=== PATIENT | male | born 1960 | race Hispanic/Latino ===

== ENCOUNTER → 2017-05-29 | Day surgery (SDC) | payer BC ==
[2017-05-26 12:05] LABS: ANION GAP 12.4 mmol/L (8-16); BLOOD UREA NITROGEN 17 mg/dL (7-26); BUN/CREATININE RATIO 23 (6-25); CALCIUM 9.4 mg/dL (8.4-10.2); CARBON DIOXIDE 28 mmol/L (22-29); CHLORIDE 107 mmol/L (98-107); CREATININE, SERUM 0.75 mg/dL (0.72-1.25); EST GLOMERULAR FILTRATION RATE > 60 ML/MIN (60-); GLUCOSE 174 mg/dL (74-118); POTASSIUM 4.4 mmol/L (3.5-5.1); SODIUM 143 mmol/L (136-145)
[~2017-05-29] MED LIST: ACETAMINOPHEN 1000 MG/100 ML IV ONE; ATORVASTATIN CA10 MG PO; BACITRACIN 50,000 UNIT VIAL ONE; BUPIVACAINE HCL 0.5% INJ 30 ML VIAL INJ ONE; CEFAZOLIN SOD 1 GM VIAL ONE; DEXAMETHASONE SOD PHOS INJ 4 MG/ML VIAL ONE; EPHEDRINE SULFATE INJ 50 MG/10 ML SYR ONE; FENTANYL CITRATE/PF 100MCG/2 ML INJ ONE; KETOROLAC TROMETHAMINE 30 MG/ML VIAL ONE; LIDOCAINE HCL 2% LOCAL INJ 5 ML SDV VIAL INJ ONE; METFORMIN HCL500 M2 PO; MIDAZOLAM HCL 2 MG/2 ML VIAL ONE; MUPIROCIN 2% OINT 22 GM TUBE ONE; ONDANSETRON HCL INJ 2 MG/ML VIAL ONE; PROPOFOL IV EMULSION 10 MG/ML 20 ML VIAL ONE; SEVOFLURANE INHAL SOLN 250 ML PEN BTL ONE
--- NOTE | 2017-05-30 08:57 | Operative Report ---
DATE OF PROCEDURE: May 29, 2017 PREOPERATIVE DIAGNOSIS: Left ulnar nerve compression neuropathy, elbow. POSTOPERATIVE DIAGNOSIS: Left ulnar nerve compression neuropathy, elbow. PROCEDURE: Left ulnar nerve decompression and transposition. ANESTHESIA: General. HISTORY: The patient is a 57-year-old right hand dominant male who has significant intrinsic atrophy of the left hand and upper extremity. Patient has a nerve conduction study test showing significant severe compression neuropathy of the elbow and compression neuropathy of the ulnar nerve around the elbow. The risks, benefits and alternatives were discussed with the patient. He is prepared to undergo the procedures outlined. DETAILS OF PROCEDURE: Patient was marked preoperatively in the holding area. He was brought to the operating theater. After the induction of adequate general anesthesia, he was prepped and draped in a supine position. A time out was performed. An incision was marked out from the medial epicondyle extending approximately 4-5 cm proximally over the intermuscular septum, and then distally over the flexor pronator muscle mass for 4-5 cm distally. The left upper extremity was exsanguinated and a tourniquet inflated to a pressure of 250 mmHg. The incision was made through the skin and subcutaneous tissues. Venous tributaries were controlled with the bipolar cautery. The incision was deepened through the subcutaneous tissue directly down to the medial epicondyle. The soft tissues were elevated off the flexor pronator muscle mass from the epicondyle and distally for adequate visualization. Proximal to the medial epicondyle, the intermuscular septum was identified at its attachment. Posteriorly, the ulnar nerve was identified. Soft tissues were then elevated off of the fascial plane and the ulnar nerve as identified. The fascia overlying the ulnar nerve was then incised, and then keeping the ulnar nerve in view, the fascia is released all the way through the cubital tunnel taking care to protect and preserve the ulnar nerve within the cubital tunnel. There was a dense amount of fibrous and scarring of the region of the cubital tunnel and the area of compression was identified. Once the cubital tunnel was released distally, the flexor pronator muscle mass was divided with its overlying fascia in the direction of the ulnar nerve and muscle fibers. At this point, the ulnar nerve was completely decompressed. The intermuscular septum is excised from its attachment to the medial epicondyle and for a distance of several centimeters proximally so that there was no site of new compression when the ulnar nerve was transposed. At this point, using a hemostat the tissue behind the ulnar nerve was dissected free, and 0.25-inch [place] drain was then placed around the ulnar nerve for traction. The ulnar nerve was gently lifted out of its bed dissecting the attachments allowing the nerve to be elevated out of the cubital tunnel. The dissection continues distally until the 1st and 2nd muscular branches of the ulnar nerve entered the flexor pronator muscle mass were identified. At this point, a section of the flexor pronator muscle mass over where the new site of the nerve will be is marked out. Then it was excised using the electrocautery. At this point, the ulnar nerve was elevated out of its bed transposed anteriorly and subcutaneously, and then checked for freedom of movement while the elbow was placed through a range of motion. There was no acuity to the course of the nerve and there is no undue sites of compression. At this point, the wound was irrigated with bacteriostatic saline. The subcutaneous tissues are attached to the medial epicondyle using 3-0 Vicryl in an interrupted figure-of-8 fashion to create a sling and prevent the ulnar nerve from subluxing back into the cubital tunnel. Once again, the path of the nerve as verified. The elbow was placed through a range of motion. There was good gliding of the nerve and no kinking for sites of new compression. The wound was then closed utilizing 3-0 Vicryl in an interrupted buried fashion followed by 5-0 nylon interrupted horizontal mattress fashion. A Marcaine field block was performed at the operative site. The tourniquet was deflated. All the fingers pinked up nicely. A sterile bulking conforming bandage was applied. Patient tolerated the procedure well, and was brought to the recovery room in satisfactory condition, and discharged with a postoperative instruction sheet, as well as a followup appointment. Job#: [id number] RISA
== END | disposition home or self-care (01) ==
LOC: OR 05:48
PROVIDERS: ATTEND Plastic Surgery
DX: G56.22 Lesion of ulnar nerve, left upper limb (principal); E11.9 Type 2 diabetes mellitus without complications; Z01.812 Encounter for preprocedural laboratory examination
CPT/HCPCS: 36415 ×2; 64718; 80048; 82948; J0690; J1100; J1885; J2001; J2250; J2405

== ENCOUNTER → 2017-06-19 | Day surgery (SDC) | payer BC ==
[~2017-06-19] MED LIST changes: -ACETAMINOPHEN 1000 MG/100 ML IV ONE; +ASPIRIN325 MG PO; -BACITRACIN 50,000 UNIT VIAL ONE; -EPHEDRINE SULFATE INJ 50 MG/10 ML SYR ONE; -KETOROLAC TROMETHAMINE 30 MG/ML VIAL ONE
--- NOTE | 2017-06-19 13:59 | Operative Report ---
PREOPERATIVE DIAGNOSIS: Right cubital tunnel syndrome. POSTOPERATIVE DIAGNOSIS: Right cubital tunnel syndrome. PROCEDURE 1. Right ulnar nerve transposition. 2. Flexor pronator muscle flap. ANESTHESIA: General. HISTORY: The patient is a 57-year-old male with EMG-proven cubital tunnel syndrome. Risks, benefits, and alternatives of treatment were discussed with the patient, and he is prepared to undergo the procedures outlined. PROCEDURE: The patient was brought to the operating theater and after the induction of adequate general inhalation anesthesia was prepped and draped in a supine position. A time out was performed by the entire operating room team. An incision was marked out from the medial epicondyle extending both proximally and distally for approximately 4-5 cm in each limb. The right upper extremity was exsanguinated and the tourniquet was inflated to a pressure of 250 mmHg. The incision was made through the skin and subcutaneous tissues, and all venous tributaries were controlled using the electrocautery. The incision was deepened through the subcutaneous tissue, and all the sensory medial antebrachial cutaneous branches that were identified were protected and preserved throughout the dissection. At this point, the dissection was continued directly onto the medial epicondyle. The skin and subcutaneous tissues were then elevated off the medial epicondyle and the flexor pronator muscle mass. Proximal to the medial epicondyle the intramuscular septum was identified and the ulnar nerve was identified just posterior to the intramuscular septum. The overlying tissue over the ulnar nerve was gently incised, taking care to protect and preserve the ulnar nerve. With the ulnar nerve in site, the overlying tissue was incised from proximal to distal through the cubital tunnel releasing the compressing structures of the ulnar nerve. At the distal aspect of the cubital tunnel, the flexor pronator muscle mass was divided and the dissection of the ulnar nerve continued until the 1st and 2nd muscular branches were identified. At this point, the medial epicondyle was marked out and an incision approximately 1.5 cm from the epicondyle was made through the fascial and muscular tissues using the electrocautery. Hemostasis was made absolute using the electrocautery. The entire flexor pronator muscle mass was elevated out of its bed in order to allow transposition of the nerve. The nerve was then gently elevated out of the cubital tunnel using a Angélica drain for traction. The posterior attachments were released and the nerve was then transposed anteriorly. The transposition was noted to provide adequate relief of tension from the compressing structures on the nerve. The medial intramuscular septum was excised from the medial epicondyle and for a distance of several centimeters proximally in order to prevent compression. With the nerve transposed submuscularly, the elbow was placed through a range of motion and there was noted to be good gliding of the nerve and no kinking or acuity throughout its course. At this point, the flexor pronator muscle mass was repaired to the cuff of tissue on the medial epicondyle using 2-0 Vicryl in an interrupted horizontal mattress fashion. The elbow was placed through a range of motion again and the nerve was visualized and there was noted to be no compression. The wound was then copiously irrigated with bacteriostatic saline and closed in layers. A 4-0 Vicryl was used in an interrupted buried fashion to approximate the deep dermis and 5-0 nylon was used in an interrupted horizontal mattress fashion. A Marcaine field block was performed at the operative site. The tourniquet was deflated. All the fingers pinked up nicely and a sterile bulky conforming bandage was applied from the axilla to the hand. A fiberglass splint was fashioned to maintain the elbow at approximately 90 degrees of flexion and this was held in place with a loosely wrapped Nick wrap. The estimated blood loss of the procedure was negligible. The patient tolerated the procedure well and was brought to the recovery room in satisfactory condition and discharged with a postoperative instruction sheet as well as a followup appointment. Job#: [id number] BLAZE
== END | disposition home or self-care (01) ==
LOC: OR 07:11
PROVIDERS: ATTEND Plastic Surgery
PROC: 01N40ZZ Release Ulnar Nerve, Open Approach (ICD-10-PCS; principal; 2017-06-19 07:30)
DX: G56.21 Lesion of ulnar nerve, right upper limb (principal); E11.9 Type 2 diabetes mellitus without complications; Z79.84 Long term (current) use of oral hypoglycemic drugs; E78.5 Hyperlipidemia, unspecified
CPT/HCPCS: 36415; 64718; 82948; J0690; J1100; J2001; J2250; J2405

== ENCOUNTER 2017-07-01 07:13 | Inpatient (IN) | payer BC ==
[2017-06-30 12:47] LABS: ANION GAP 11.8 mmol/L (8-16); BLOOD UREA NITROGEN 15 mg/dL (7-26); BUN/CREATININE RATIO 20 (6-25); CALCIUM 9.4 mg/dL (8.4-10.2); CARBON DIOXIDE 25 mmol/L (22-29); CHLORIDE 106 mmol/L (98-107); CREATININE, SERUM 0.75 mg/dL (0.72-1.25); EST GLOMERULAR FILTRATION RATE > 60 ML/MIN (60-); GLUCOSE 141 mg/dL (74-118); POTASSIUM 3.8 mmol/L (3.5-5.1); SODIUM 139 mmol/L (136-145)
[~2017-07-01] VITALS: Ht 165.1 cm; Wt 82.1 kg
[~2017-07-01 07:13] MED LIST changes: -ASPIRIN325 MG PO; +BACITRACIN 50,000 UNIT VIAL ONE; -BUPIVACAINE HCL 0.5% INJ 30 ML VIAL INJ ONE; -CEFAZOLIN SOD 1 GM VIAL ONE; -DEXAMETHASONE SOD PHOS INJ 4 MG/ML VIAL ONE; -FENTANYL CITRATE/PF 100MCG/2 ML INJ ONE; -LIDOCAINE HCL 2% LOCAL INJ 5 ML SDV VIAL INJ ONE; -MIDAZOLAM HCL 2 MG/2 ML VIAL ONE; -ONDANSETRON HCL INJ 2 MG/ML VIAL ONE; -PROPOFOL IV EMULSION 10 MG/ML 20 ML VIAL ONE; -SEVOFLURANE INHAL SOLN 250 ML PEN BTL ONE; +TRANEXAMIC ACID 1,000 MG/10 ML ML ONE
[2017-07-01] MEDS ORDERED: CELECOXIB 200 MG CAP ONE (07:20)
[2017-07-01] MEDS ORDERED: DEXAMETHASONE SOD PHOS 10 MG/1 ML VIAL ONE (07:20)
[2017-07-01] MEDS ORDERED: CEFAZOLIN SOD 2 GM/D5W 50ML 50 ML IV ONE (07:21)
[2017-07-01] MEDS ORDERED: GABAPENTIN 300 MG CAP ONE (07:21)
[2017-07-01] MEDS ORDERED: ROPIVACAINE 246.25 MG, EPINEPHRINE HCL 1:1000 0.5 MG, CLONIDINE HCL 0.08 MG, KETOROLAC ... INJ ONE ×5 (07:30)
[2017-07-01] MEDS ORDERED: SODIUM CHLORIDE 0.9% 1000ML 1,000 ML IV SCH (10:18)
[2017-07-01] MEDS ORDERED: DIPHENHYDRAMINE HCL INJ 50 MG/ML VIAL IM/IV PRN (10:30)
[2017-07-01] MEDS ORDERED: PROMETHAZINE HCL (IM) 25 MG/ML VIAL INJ PRN (10:30)
[2017-07-01] MEDS ORDERED: ZOLPIDEM TARTRATE 5 MG TAB PO PRN (10:30)
[2017-07-01] MEDS ORDERED: KETOROLAC TROMETHAMINE 30 MG/ML VIAL IV PRN (10:30)
[2017-07-01] MEDS ORDERED: DOCUSATE SODIUM 100 MG CAP PO PRN (10:30)
[2017-07-01] MEDS ORDERED: ONDANSETRON HCL INJ 2 MG/ML VIAL IV PRN (10:30)
[2017-07-01] MEDS ORDERED: ONDANSETRON HCL 4 MG ORAL DISINTEGRATING TAB PO PRN (11:00)
--- NOTE | 2017-07-01 11:12 | Diagnostic Imaging Report ---
PROCEDURE:KNEE LEFT 1-2 VIEWS TECHNIQUE:AP and crosstable lateral views left knee INDICATION:Left totally replacement COMPARISON:None. FINDINGS: See conclusion. CONCLUSION: 1. Total left knee arthroplasty intact and in anatomic alignment. 2. Expected regional postsurgical sequela including joint gas, soft tissue swelling and surgical luis angel. 3. No acute abnormality. Dictated by: Gonzalez Brown M.D. on 07/01/2017 at 11:14 Electronically approved by: Gonzalez Brown M.D. on 07/01/2017 at 11:14
--- NOTE | 2017-07-01 11:24 | Operative Report ---
DATE OF PROCEDURE: July 01, 2017 PUBLIC SERVICES LIBRARIAN: Rupert Woods PA-C The patient was brought to the operating room for induction of anesthesia. Throughout this case, my PA's assistance was necessary for retraction of soft tissue and positioning of the extremity. This allows for efficient and technically successful execution of the operation and is considered medically necessary. PREOPERATIVE DIAGNOSIS: Osteoarthritis, left knee. POSTOPERATIVE DIAGNOSIS: Osteoarthritis, left knee. PROCEDURE: Left total knee arthroplasty. INDICATIONS: The patient is a 57-year-old gentleman who has severe end-stage arthritis of his left knee. He has failed conservative management and would like to proceed with a left total knee replacement. The risks and benefits of the procedure were explained. The recovery was discussed. All of his questions were answered. He stated he understood and wished to proceed. DESCRIPTION OF PROCEDURE: The patient was brought to the operating room and placed under general anesthetic. He received prophylactic antibiotics, tranexamic acid and a regional block in the holding area. His left lower extremity was prepped and draped in a sterile manner. A preoperative time out was performed. The extremity was exsanguinated, and a proximal tourniquet was inflated to 300 mmHg. Standard anterior approach with a medial parapatellar arthrotomy was performed. Clear synovial fluid was removed from the joint. Soft-tissue releases were performed to bring the knee up into flexion with the patella everted. Marginal osteophytes, the cruciate ligaments and meniscal remnants were excised. A Cobb and Nephew Tammy II posterior stabilized knee system was used throughout the case. An extramedullary cutting guide was used to resect the proximal tibia. The cut was referenced off of the lateral compartment. The tibial baseplate was noted to be a size #5. The central fin punch was impacted, and attention was directed towards the distal femur. An intramedullary cutting guide was used to resect the distal femur in 6 degrees of valgus and rotation referenced off of a combination of landmarks including [place] line, epicondylar axis, and the posterior condyles. The femoral component was noted to be a size #6. Anterior and posterior cuts were made. Posterior capsular osteophytes and loose bodies were removed. The trial reductions were performed. A 9-mm ultracongruent tibial insert provided optimal soft-tissue balancing in full extension and 90 degrees of flexion. The patella was then resurfaced with a 32-mm x 9-mm patellar button. The thickness was checked before and after and was right around 22 mm. Patellar tracking was noted to be concentric. The trial implants were then all removed. A 100 mL premixed pericapsular JUAQUIN injection was placed into the surrounding soft tissue. The knee was thoroughly irrigated with a Pulsavac. The components were cemented into place using a single mix of Palacos cement preloaded with gentamicin. The wound was further irrigated while the cement cured. The arthrotomy was then closed with interrupted #1 Ethibond. The knee was put through flexion and extension to ensure a secure closure. The skin was closed with subcuticular Vicryl and luis angel. A sterile bandage was applied. The patient was extubated and transported to the recovery room in stable condition. Blood loss was minimal, and all needle and sponge counts were correct. Job#: [id number]
[2017-07-01 11:30] VITALS: BP 143/89
[2017-07-01] MEDS: ACETAMINOPHEN 1000 MG/100 ML IV SCH ×3 (12:00→23:44)
[2017-07-01 12:16] VITALS: BP 143/89
[2017-07-01] MEDS ORDERED: CEFAZOLIN SOD 1 GM/NS 50ML 50 ML IV SCH (14:00)
[2017-07-01] MEDS: CEFAZOLIN SOD 1 GM VIAL IV SCH ×2 (16:00→23:44)
[2017-07-01 16:33] VITALS: BP 120/58
[2017-07-01] MEDS: CELECOXIB 200 MG CAP PO SCH (17:00)
[2017-07-01] MEDS ORDERED: BUPIVACAINE HCL 0.5% INJ 30 ML VIAL INJ ONE (17:33)
[2017-07-01] MEDS ORDERED: EPINEPHRINE HCL INJ 1 MG/ML AMP ONE (17:33)
[2017-07-01] MEDS ORDERED: MORPHINE SULFATE INJ 10 MG/ML ONE (17:49)
[2017-07-01] MEDS ORDERED: FENTANYL CITRATE/PF 100MCG/2 ML INJ ONE (17:49)
[2017-07-01] MEDS ORDERED: MIDAZOLAM HCL 2 MG/2 ML VIAL ONE (17:49)
[2017-07-01] MEDS ORDERED: SEVOFLURANE INHAL SOLN 250 ML PEN BTL ONE (19:29)
[2017-07-01] MEDS ORDERED: DEXAMETHASONE SOD PHOS INJ 4 MG/ML VIAL ONE (19:29)
[2017-07-01] MEDS ORDERED: ACETAMINOPHEN 1000 MG/100 ML IV ONE (19:29)
[2017-07-01] MEDS ORDERED: LIDOCAINE HCL 2% LOCAL INJ 5 ML SDV VIAL INJ ONE (19:29)
[2017-07-01] MEDS ORDERED: PROPOFOL IV EMULSION 10 MG/ML 20 ML VIAL ONE (19:29)
[2017-07-01] MEDS ORDERED: ONDANSETRON HCL INJ 2 MG/ML VIAL ONE (19:29)
[2017-07-01 20:00] VITALS: BP 128/68
[2017-07-01] MEDS ORDERED: DEXTROSE 50% SYRINGE 50 ML IV PRN (20:00)
[2017-07-01 20:05] VITALS: BP 128/68
[2017-07-01] MEDS: INSULIN LISPRO 100 UNIT/1 ML 3ML VIAL SQ SCH (21:00)
[2017-07-01] MEDS ORDERED: INSULIN LISPRO 100 UNIT/1 ML 3ML VIAL SQ SCH (21:00)
[2017-07-01] MEDS: ASPIRIN 325 MG TAB PO SCH (21:28)
[2017-07-02] VITALS: BP 108/57
[2017-07-02] MEDS: ACETAMINOPHEN 1000 MG/100 ML IV SCH (06:00)
[2017-07-02] MEDS ORDERED: HYDROCODONE/APAP 5MG-325MG TAB PO PRN (06:12)
[2017-07-02] MEDS: HYDROCODONE/APAP 7.5MG-325MG 1 EA TAB PO PRN ×2 (06:17→17:00)
[2017-07-02 07:08] VITALS: BP 107/60
[2017-07-02] MEDS: INSULIN LISPRO 100 UNIT/1 ML 3ML VIAL SQ SCH ×3 (07:30→16:30)
[2017-07-02 07:39] LABS: HEMATOCRIT 34.8 % (38.2-49.6); HEMOGLOBIN 12.1 g/dL (14.0-18.0)
[2017-07-02] MEDS ORDERED: ASPIRIN325 MG PO (08:47)
[2017-07-02] MEDS: CEFAZOLIN SOD 1 GM VIAL IV SCH (08:49)
[2017-07-02] MEDS: CELECOXIB 200 MG CAP PO SCH ×2 (08:50→16:59)
[2017-07-02] MEDS: METFORMIN HCL 500 MG TAB CR PO SCH ×2 (08:50→16:59)
[2017-07-02] MEDS: ASPIRIN 325 MG TAB PO SCH ×2 (08:50→16:59)
[2017-07-02] MEDS ORDERED: ATORVASTATIN 10 MG TAB PO SCH (09:00)
[2017-07-02] MEDS ORDERED: ACETAMINOPHEN 1000 MG/100 ML IV PRN (12:00)
[2017-07-02] MEDS ORDERED: ACETAMINOPHEN 650 MG SUPP PR PRN (12:00)
[2017-07-02 12:38] VITALS: BP 110/68
[2017-07-02 15:04] VITALS: BP 107/60
[2017-07-02 16:15] VITALS: BP 118/72
== END 2017-07-02 18:00 | disposition home or self-care (01) | DRG 470 ==
LOC: OR 07:13 → MED/SURG 10:48
PROVIDERS: ADMIT Specialist; ATTEND Specialist
PROC: 0SRD0J9 Replacement of Left Knee Joint with Synthetic Substitute, Cemented, Open Approach (ICD-10-PCS; principal; 2017-07-01 09:09)
DX: M17.0 Bilateral primary osteoarthritis of knee (principal); E11.9 Type 2 diabetes mellitus without complications; N40.0 Benign prostatic hyperplasia without lower urinary tract symptoms; D64.9 Anemia, unspecified; E78.00 Pure hypercholesterolemia, unspecified; E78.5 Hyperlipidemia, unspecified; Z79.4 Long term (current) use of insulin
CPT/HCPCS: 36415; 80048; 82948; 85014; 85018; 86850; 86900; 86920; 97139; J0171; J0690; J1100; J1885; J2001; J2250; J2270; J2405; J2795; J7030

== ENCOUNTER 2017-09-01 06:59 | Observation (INO) | payer BC ==
[2017-08-29 14:11] LABS: ANION GAP 12.8 mmol/L (8-16); BLOOD UREA NITROGEN 16 mg/dL (7-26); BUN/CREATININE RATIO 17 (6-25); CALCIUM 9.6 mg/dL (8.4-10.2); CARBON DIOXIDE 26 mmol/L (22-29); CHLORIDE 105 mmol/L (98-107); CREATININE, SERUM 0.92 mg/dL (0.72-1.25); EST GLOMERULAR FILTRATION RATE > 60 ML/MIN (60-); GLUCOSE 121 mg/dL (74-118); POTASSIUM 3.8 mmol/L (3.5-5.1); SODIUM 140 mmol/L (136-145)
[~2017-09-01] VITALS: Ht 165.1 cm; Wt 87.5 kg
[~2017-09-01 06:59] MED LIST changes: +ASPIRIN325 MG PO; -BACITRACIN 50,000 UNIT VIAL ONE; -MUPIROCIN 2% OINT 22 GM TUBE ONE; -TRANEXAMIC ACID 1,000 MG/10 ML ML ONE
[2017-09-01] MEDS ORDERED: GABAPENTIN 300 MG CAP ONE (07:09)
[2017-09-01] MEDS ORDERED: CELECOXIB 200 MG CAP ONE (07:09)
[2017-09-01] MEDS ORDERED: DEXAMETHASONE SOD PHOS 10 MG/1 ML VIAL ONE (07:09)
[2017-09-01] MEDS ORDERED: CEFAZOLIN SOD 2 GM/D5W 50ML 50 ML IV ONE (07:10)
[2017-09-01] MEDS ORDERED: ROPIVACAINE 246.25 MG, EPINEPHRINE HCL 1:1000 0.5 MG, CLONIDINE HCL 0.08 MG, KETOROLAC ... INJ ONE ×5 (07:30)
[2017-09-01] MEDS ORDERED: MUPIROCIN 2% OINT 22 GM TUBE ONE (07:53)
[2017-09-01] MEDS ORDERED: BACITRACIN 50,000 UNIT VIAL ONE (07:53)
[2017-09-01] MEDS ORDERED: TRANEXAMIC ACID 1,000 MG/10 ML ML ONE (07:53)
[2017-09-01] MEDS: SODIUM CHLORIDE 0.9% 1000ML 1,000 ML IV SCH ×2 (10:03→20:22)
[2017-09-01] MEDS ORDERED: ACETAMINOPHEN 650 MG SUPP PR PRN (10:15)
[2017-09-01] MEDS ORDERED: DOCUSATE SODIUM 100 MG CAP PO PRN (10:15)
[2017-09-01] MEDS ORDERED: DIPHENHYDRAMINE HCL INJ 50 MG/ML VIAL IM/IV PRN (10:15)
[2017-09-01] MEDS ORDERED: KETOROLAC TROMETHAMINE 30 MG/ML VIAL IV PRN (10:15)
[2017-09-01] MEDS ORDERED: ONDANSETRON HCL INJ 2 MG/ML VIAL IV PRN (10:15)
[2017-09-01] MEDS ORDERED: PROMETHAZINE HCL (IM) 25 MG/ML VIAL IM PRN (10:15)
--- NOTE | 2017-09-01 11:18 | Diagnostic Imaging Report ---
PROCEDURE:X-RAY RIGHT KNEE, ONE OR TWO VIEWS COMPARISON:None. INDICATIONS:STATUS POST RIGHT KNEE SURGERY FINDINGS:Status post total right knee arthroplasty with intact prosthesis in adequate anatomic alignment. There is post-operative soft tissue swelling and gas. Overlying surgical drain. Multiple surgical skin luis angel. No acute fracture-dislocation. CONCLUSION: Status post total right knee arthroplasty with intact prosthesis in adequate anatomic alignment. Dictated by: Aaron Dexter M.D. on 09/01/2017 at 11:21 Electronically approved by: Aaron Dexter M.D. on 09/01/2017 at 11:21
[2017-09-01 12:26] VITALS: BP 124/78
[2017-09-01] MEDS: ACETAMINOPHEN 1000 MG/100 ML IV SCH ×2 (12:39→17:23)
[2017-09-01 12:43] VITALS: BP 124/78
[2017-09-01 12:51] VITALS: BP 124/78
[2017-09-01 15:54] VITALS: BP 123/66
[2017-09-01] MEDS: CEFAZOLIN SOD 1 GM/D5W 50ML 50 ML IV SCH (15:58)
[2017-09-01] MEDS: HYDROCODONE/APAP 5MG-325MG TAB PO PRN (15:59)
[2017-09-01] MEDS: ASPIRIN 325 MG TAB PO SCH (17:23)
[2017-09-01] MEDS: CELECOXIB 200 MG CAP PO SCH (17:23)
[2017-09-01] MEDS: METFORMIN HCL 500 MG TAB CR PO SCH (17:23)
[2017-09-01] MEDS ORDERED: PROPOFOL IV EMULSION 10 MG/ML 20 ML VIAL ONE (17:27)
[2017-09-01] MEDS ORDERED: SEVOFLURANE INHAL SOLN 250 ML PEN BTL ONE (17:27)
[2017-09-01] MEDS ORDERED: DEXAMETHASONE SOD PHOS INJ 4 MG/ML VIAL ONE (17:27)
[2017-09-01] MEDS ORDERED: LIDOCAINE HCL 2% LOCAL INJ 5 ML SDV VIAL INJ ONE (17:27)
[2017-09-01] MEDS ORDERED: ONDANSETRON HCL INJ 2 MG/ML VIAL ONE (17:27)
[2017-09-01] MEDS ORDERED: LIDOCAINE 2%/ EPINEPHRINE 20ML MDV ONE (17:53)
[2017-09-01] MEDS ORDERED: ROPIVACAINE 0.5% 5 MG/ML 30 ML SDV ONE (17:53)
[2017-09-01] MEDS ORDERED: FENTANYL CITRATE/PF 100MCG/2 ML INJ ONE (18:00)
[2017-09-01] MEDS ORDERED: MIDAZOLAM HCL 2 MG/2 ML VIAL ONE (18:00)
[2017-09-01 20:00] VITALS: BP 122/62
[2017-09-01 20:05] VITALS: BP 122/62
[2017-09-01] MEDS ORDERED: ATORVASTATIN 10 MG TAB PO SCH (21:00)
[2017-09-01] MEDS ORDERED: ZOLPIDEM TARTRATE 5 MG TAB PO PRN (21:00)
[2017-09-02] VITALS: BP 114/66
[2017-09-02] MEDS: ACETAMINOPHEN 1000 MG/100 ML IV SCH ×2 (00:04→06:19)
[2017-09-02] MEDS: CEFAZOLIN SOD 1 GM/D5W 50ML 50 ML IV SCH ×2 (00:17→07:41)
[2017-09-02] MEDS: HYDROCODONE/APAP 5MG-325MG TAB PO PRN (03:18)
[2017-09-02 04:00] VITALS: BP 128/78
[2017-09-02] MEDS: SODIUM CHLORIDE 0.9% 1000ML 1,000 ML IV SCH (06:03)
[2017-09-02] MEDS: ASPIRIN 325 MG TAB PO SCH ×2 (08:16→17:00)
[2017-09-02] MEDS: CELECOXIB 200 MG CAP PO SCH ×2 (08:16→17:00)
[2017-09-02] MEDS: METFORMIN HCL 500 MG TAB CR PO SCH ×2 (08:16→17:00)
[2017-09-02 08:31] VITALS: BP 133/72
[2017-09-02 09:03] VITALS: BP 133/72
[2017-09-02] MEDS: HYDROCODONE/APAP 7.5MG-325MG 1 EA TAB PO PRN ×2 (09:51→17:00)
[2017-09-02] MEDS ORDERED: ACETAMINOPHEN 1000 MG/100 ML IV PRN (10:15)
[2017-09-02 12:46] VITALS: BP 130/82
--- NOTE | 2017-09-02 16:40 | Operative Report ---
DATE OF PROCEDURE: September 01, 2017 LAB SUPPORT TECHNICIAN: Rupert Woods PA-C The patient was brought to the operating room for induction of anesthesia. Throughout this case, my PA's assistance was necessary for retraction of soft tissue and positioning of the extremity. This allows for efficient and technically successful execution of the operation and is considered medically necessary. PREOPERATIVE DIAGNOSIS: Osteoarthritis, right knee. POSTOPERATIVE DIAGNOSIS: Osteoarthritis, right knee. PROCEDURE: Right total knee arthroplasty. INDICATIONS: The patient is a 57-year-old gentleman who has end-stage arthritis of his right knee. He has failed conservative management and would like to proceed with definitive intervention. The risks and benefits of right total knee replacement have been explained. He has been through a left total knee replacement within the last year. He states he understands and is familiar with the procedure. He wishes to proceed. DESCRIPTION OF PROCEDURE: The patient was brought to the operating room and placed under general anesthetic. He received a regional block, prophylactic antibiotics and tranexamic acid in the holding area. His right lower extremity was prepped and draped in a sterile manner. A preoperative timeout was performed. A proximal tourniquet was inflated to 300 mmHg after exsanguinating the extremity. An anterior approach with a medial parapatellar arthrotomy was performed. Soft tissue releases were performed to bring the knee up into flexion with the patella everted. The cruciate ligaments, marginal osteophytes, and meniscal remnants were all removed. A Cobb and Nephew Tammy II posterior stabilized knee system was used throughout the case. An extramedullary cutting guide was used to resect the proximal tibia. The tibial baseplate was noted to be a size #5. The central fin punch was impacted and attention was directed towards the distal femur. An intramedullary cutting guide was used to resect the distal femur in 6 degrees of valgus and rotation referencing off of a combination of landmarks including [place] line, the epicondylar axis in the posterior condyles. The femoral component was noted to be a size #6. The anterior and posterior cuts were made. Trial reductions were performed. A 9-mm ultra-congruent tibial insert was felt to provide optimal soft tissue balancing in flexion and extension. The patella was resurfaced with a 32 mm x 7.5 mm patellar button. The thickness was checked before and after and was noted to be approximately 22 mm. Patellar tracking was concentric. The trial implants were then all removed. A 100 mL premixed pericapsular JUAQUIN injection was then placed into the surrounding soft tissue. The knee was thoroughly irrigated with a shower-tip pulsatile lavage. The components were cemented into place using a single mix of PALACOS cement pre-loaded with antibiotics. Care was taken to remove extravasated cement. The wound was further irrigated while the cement cured. The arthrotomy was then carefully closed with interrupted #1 Ethibond. The knee was put through flexion and extension to ensure a secure closure. The skin was closed with subcuticular Vicryl and luis angel. A sterile bandage was applied. The patient was extubated and transported to the recovery room in stable condition. The blood loss was minimal. All needle and sponge counts were correct. Job#: [id number] TANI
[2017-09-02 16:41] VITALS: BP 140/81
== END 2017-09-02 17:01 | disposition home or self-care (01) ==
LOC: OR 06:59 → PACU V 10:05 → MED/SURG 12:00
PROVIDERS: ADMIT Specialist; ATTEND Specialist
DX: M17.11 Unilateral primary osteoarthritis, right knee (principal); Z96.652 Presence of left artificial knee joint; E11.9 Type 2 diabetes mellitus without complications; N40.0 Benign prostatic hyperplasia without lower urinary tract symptoms; E78.00 Pure hypercholesterolemia, unspecified
CPT/HCPCS: 27447; 36415 ×3; 73560; 80048; 82948; 85014; 85018; 86850; 86900; 86920; 93005; 97110; 97116; 97139; 97161; 97530 ×2; C1713; G0378 ×2; G8978; G8979; J0171; J1100 ×2; J1885; J2001 ×2; J2250; J2405; J2795; J7030